=== PATIENT | female | born 1985 | race Caucasian/White ===

== ENCOUNTER 2019-02-18 13:50 | Emergency (ER) | payer MEDICAID ==
[~2019-02-18] VITALS: Ht 157.5 cm; Wt 83.0 kg
[2019-02-18 14:26] VITALS: Ht 157.5 cm; Wt 83.0 kg
[2019-02-18 17:30] LABS: BASOPHIL % 0.6 % (0-2); PLATELET COUNT 360 x10^3mcL (130-400); RED CELL DISTRIBUTION WIDTH 12.8 % (11.5-14.5)
[2019-02-18 17:40] LABS: CALCIUM 8.9 mg/dL (8.5-10.1); CARBON DIOXIDE 30.3 mmol/L (21-32); CHLORIDE SERUM 104 mmol/L (98-107); CREATININE SERUM 0.6 mg/dL (0.6-1.0); GFR1 > 60 mL/min; GLUCOSE SERUM 104 mg/dL (74-106); POTASSIUM SERUM 4.2 mmol/L (3.5-5.1); SODIUM SERUM 142 mmol/L (136-145)
[2019-02-18 17:44] LABS: ALBUMIN 3.9 g/dL (3.4-5.0); ALKALINE PHOSPHATASE 90 U/L (46-116); ALT/SGPT 41 U/L (14-59); AST/SGOT 10 U/L (15-37); BILIRUBIN TOTAL 0.19 mg/dL (0.20-1.00); C REACTIVE PROTEIN 0.2 mg/dL (<=0.9); LIPASE 106 IU/L (73-393); TOTAL PROTEIN, SERUM 7.5 g/dL (6.4-8.2)
[2019-02-18 17:51] LABS: UA SPECIFIC GRAVITY 1.015 (1.005-1.035); microscopic required? YES; urine erythrocyte 1+ (NEGATIVE)
[2019-02-18 18:26] LABS: ERYTHROCYTE SED RATE 16 mm/hr (0-20)
[2019-02-18 20:30] VITALS: BP 132/81
== END 2019-02-18 20:30 | disposition home or self-care (01) ==
LOC: ED 13:50
PROVIDERS: Emergency Medicine
DX: M54.16 Radiculopathy, lumbar region (principal); K29.70 Gastritis, unspecified, without bleeding; K76.0 Fatty (change of) liver, not elsewhere classified; N76.0 Acute vaginitis
CPT/HCPCS: 36415; 87491; 87591; J1885

== ENCOUNTER 2019-03-13 20:35 | Emergency (ER) | payer MEDICAID ==
[~2019-03-13] VITALS: Ht 160 cm; Wt 82.6 kg
[2019-03-13 20:52] VITALS: Ht 160 cm; Wt 82.6 kg
[2019-03-13 21:26] LABS: BASOPHIL % 0.2 % (0-2); PLATELET COUNT 349 x10^3mcL (130-400); RED CELL DISTRIBUTION WIDTH 12.7 % (11.5-14.5)
[2019-03-13 21:35] LABS: CALCIUM 8.9 mg/dL (8.5-10.1); CARBON DIOXIDE 28.8 mmol/L (21-32); CHLORIDE SERUM 105 mmol/L (98-107); CREATININE SERUM 0.8 mg/dL (0.6-1.0); GFR1 > 60 mL/min; GLUCOSE SERUM 193 mg/dL (74-106); POTASSIUM SERUM 3.6 mmol/L (3.5-5.1); SODIUM SERUM 140 mmol/L (136-145)
[2019-03-13 21:38] LABS: ALBUMIN 3.7 g/dL (3.4-5.0); ALKALINE PHOSPHATASE 81 U/L (46-116); ALT/SGPT 48 U/L (14-59); AST/SGOT 16 U/L (15-37); BILIRUBIN TOTAL 0.24 mg/dL (0.20-1.00); LIPASE 135 IU/L (73-393)
[2019-03-13 21:42] LABS: UA SPECIFIC GRAVITY 1.015 (1.005-1.035); microscopic required? YES; urine erythrocyte 2+ (NEGATIVE)
[2019-03-14 01:40] VITALS: BP 104/67
== END 2019-03-14 01:40 | disposition home or self-care (01) ==
LOC: ED 20:35
PROVIDERS: Emergency Medicine
DX: N76.0 Acute vaginitis (principal)
CPT/HCPCS: 36415; 87491; 87591

== ENCOUNTER 2019-03-16 18:04 | Emergency (ER) | payer MEDICAID ==
[~2019-03-16] VITALS: Ht 160 cm; Wt 82.1 kg
[2019-03-16 18:07] VITALS: Ht 160 cm; Wt 82.1 kg
[2019-03-16 20:00] VITALS: BP 127/82
== END 2019-03-16 20:00 | disposition home or self-care (01) ==
LOC: ED 18:04
DX: Z32.02 Encounter for pregnancy test, result negative (principal); Z98.51 Tubal ligation status

== ENCOUNTER 2019-08-18 15:19 | Emergency (ER) | payer MEDICAID ==
[~2019-08-18] VITALS: Ht 154.9 cm; Wt 87.1 kg
[2019-08-18 16:01] VITALS: BP 132/78; Ht 154.9 cm; Wt 87.1 kg
== END 2019-08-18 18:29 | disposition home or self-care (01) ==
LOC: ED 15:19
DX: J06.9 Acute upper respiratory infection, unspecified (principal); Z98.51 Tubal ligation status